=== PATIENT | male | born 1970 ===

== ENCOUNTER 2017-06-28 16:48 | Emergency (ER) | payer MEDICAID ==
[2017-06-28] MEDS ORDERED: Sodium Chloride 0.9% 1,000 ML IV STA (18:27)
[2017-06-28 19:41] LABS: BASO % 0.7 % (0.0-2.0); EOS % 0.4 % (0.0-4.0); HEMOGLOBIN 14.6 g/dL (12.0-18.0); LYMPH # 0.4 K/uL (1.0-4.3); LYMPH % 9.4 % (20.0-40.0); MEAN CELL VOLUME 88.1 fl (80.0-94.0); MEAN PLATELET VOLUME 7.9 fl (7.2-11.7); MONO # 0.3 K/uL (0.0-0.8); NEUT # 3.4 K/uL (1.8-7.0); NEUT % 82.5 % (50.0-75.0); PLATELET COUNT 194 K/uL (130-400); RBC 4.87 Mil/uL (4.40-5.90); RED CELL DISTRIBUTION WIDTH 13.5 % (11.5-14.5); WHITE BLOOD COUNT 4.1 K/uL (4.8-10.8)
[2017-06-28 19:50] LABS: ALB/GLOB RATIO 1.2 (1.0-2.1); ALBUMIN 4.5 g/dL (3.5-5.0); ALT/SGPT 213 U/L (21-72); AST/SGOT 191 U/L (17-59); BLOOD UREA NITROGEN 13 mg/dl (9-20); CALCIUM 9.4 mg/dL (8.4-10.2); GFR AFRICAN-AMERICAN > 60; GFR NON-AFRICAN AMERICAN > 60
[2017-06-28 19:55] LABS: VENOUS BLOOD GAS BASE EXCESS 2.8 mmol/L (0.0-2.0); VENOUS BLOOD GAS PCO2 47 mmHg (40-60); VENOUS BLOOD GAS PO2 14 mm/Hg (30-55); VENOUS BLOOD PH 7.39 (7.32-7.43)
--- NOTE | 2017-06-28 20:28 | ED PDOC ---
HPI: Influenza Time Seen by Provider: 06/28/17 17:55 Chief Complaint: Flu-like Symptoms History Per: Patient Sick Contacts (Context): None Hx Influenza Vaccination: No Additional complaint(s):: Pt. states on Monday evening he developed sore throat, bodyaches, nasal congestion, and fever. States he's been taking Tylenol PM without relief. Last dose was taken yesterday evening. Denies chest pain, SOB, abd pain, N/V/D, rash , sick contacts, recent travel. Of note, pt. did not taken influenza vaccine this season. Past Medical History Reviewed: Historical Data, Nursing Documentation, Vital Signs Vital Signs: Last Vital Signs Temp 102.3 F H 06/28/17 17:15 Pulse 120 H 06/28/17 17:15 Resp 16 06/28/17 17:15 BP 109/77 06/28/17 17:15 Pulse Ox 97 06/28/17 17:15 - Medical History PMH: Denies: Diabetes, Hepatitis, HIV, HTN, Seizures, Sexually Transmitted Disease - Surgical History Other surgeries: hernia repair - Family History Family History: States: No Known Family Hx - Immunization History Hx Tetanus Toxoid Vaccination: No Hx Influenza Vaccination: Yes Hx Pneumococcal Vaccination: No - Home Medications Home Medications: Ambulatory Orders Medication Instructions Recorded Acetaminophen [Tylenol 325mg tab] 3 tab PO Q4 PRN #30 tab 06/28/17 Oseltamivir [Tamiflu] 75 mg PO BID #9 cap 06/28/17 - Allergies Allergies/Adverse Reactions: Allergies Allergy/AdvReac Type Severity Reaction Status Date / Time No Known Allergies Allergy Verified 06/28/17 17:15 - Laboratory Results Result Diagrams: 06/28/17 19:35 06/28/17 19:35 - ECG O2 Sat by Pulse Oximetry: 97 - Progress ED Course And Treament: Labs, Tylenol 975mg PO, IV NS bolus x 1, blood culture x 2 ordered. 2045 Repeat Temp: 100.5, HR: 102/ BP: 99/62 NS was still not given. NS bolus was started. Motrin PO ordered. 2210 On re-evaluation, pt. reports feeling much better. Informed of results and instructed to f/u with PMD. T: 98.8, BP 115/74, HR: 89 Disposition - Clinical Impression Clinical Impression: Influenza-like symptoms - Patient ED Disposition Is Patient to be Admitted: No - Disposition Referrals: Muriel Yost [Outside] Disposition: Routine/Home Disposition Time: 22:11 Condition: IMPROVED Additional Instructions: Follow up with PMD for further evaluation. Return to ED immediately if symptoms worsen. Prescriptions: Acetaminophen [Tylenol 325mg tab] 3 tab PO Q4 PRN #30 tab PRN Reason: Fever >100.4 F Oseltamivir [Tamiflu] 75 mg PO BID #9 cap Instructions: Flu, Adult (DC) Forms: [employer] (Romansh) Print Language: UKRAINIAN
[2017-06-28 20:42] VITALS: RESP 20
[2017-06-28 21:40] LABS: BANDS 2 % (0-2); BASOPHIL 1 % (0-2); LYMPHOCYTE 13 % (20-50); MONOCYTE 7 % (0-10); NEUTROPHIL 77 % (42-75); TOTAL CELLS COUNTED 100
[2017-06-28 21:41] LABS: HYPOCHROMIC SLIGHT; PLATELET ESTIMATE NORMAL (NORMAL); TOXIC GRANULATION PRESENT
[2017-06-28 22:07] VITALS: BP 115/74; PULSE 89; TEMP 98.7
[2017-06-28 22:13] VITALS: O2SAT 97
== END 2017-06-28 22:15 | disposition home or self-care (01) ==
LOC: H.ER 16:48
DX: J02.0 Streptococcal pharyngitis (principal); J11.1 Influenza due to unidentified influenza virus with other respiratory manifestations
CPT/HCPCS: 80053; 82803; 85025; 87040; 87070; 87430; 87804; 99283; J7040